=== PATIENT | female | born 1985 | race Caucasian/White ===

== ENCOUNTER 2016-09-16 12:29 | Emergency (ER) | payer OTHER ==
[~2016-09-16] VITALS: Ht 177.8 cm; Wt 70.3 kg
[2016-09-16] MEDS ORDERED: IV NORMAL SALINE 1000ML BAG 1,000 ML IV SCH (13:42)
[2016-09-16] MEDS ORDERED: FAMOTIDINE 20 MG/2 ML VIAL IVP ONE (13:45)
[2016-09-16] MEDS ORDERED: FENTANYL PF 100 MCG/2 ML VIAL. IV PRN (13:45)
[2016-09-16] MEDS ORDERED: ONDANSETRON PF 4 MG/2 ML VIAL. IV ONE (13:45)
--- NOTE | 2016-09-16 13:56 | PHYS DOC ---
Past Medical History Past Medical History: Asthma Past Surgical History: No Surgical History Alcohol Use: Occasionally Drug Use: None Adult General Chief Complaint Chief Complaint: ABDOMINAL PAIN HPI HPI Patient is a 31 year old female who presents with complaint of right lower quadrant abdominal pain. Patient states the pain is been present for the past 2 days. Patient states that her symptoms were very severe last night, however they have slightly improved today. Patient states that she had radiation of pain into her low back on both sides with symptoms per the patient describes the pain as cramping. Patient denies any significant past medical history. Patient states that she has an IUD which has been in place for the past 3 years. Patient does not have an SOFTWARE LEAD physician here in [place]. Patient is currently serving with the . Patient denies any associated fevers, vomiting, dysuria, diarrhea, or hematuria. Review of Systems Review of Systems Constitutional: Denies fever or chills [] Eyes: Denies change in visual acuity, redness, or eye pain [] HENT: Denies nasal congestion or sore throat [] Respiratory: Denies cough or shortness of breath [] Cardiovascular: Denies chest pain [] GI: Abdominal pain, denies nausea, vomiting, bloody stools or diarrhea [] : Denies dysuria or hematuria [] Musculoskeletal: Denies back pain or joint pain [] Integument: Denies rash or skin lesions [] Neuro: Denies headache, weakness, or sensory deficits Current Medications Current Medications Current Medications Medications (Trade) Dose Ordered Sig/Simone Start Time Stop Time Status Last Admin Dose Admin Famotidine (Pepcid) 20 mg 1X ONCE 09/16/16 13:45 09/16/16 13:46 DC Fentanyl Citrate 50 mcg 50 mcg PRN Q15MIN PRN 09/16/16 13:45 09/16/16 17:06 DC Iohexol (Omnipaque 300 Mg/ml) 75 ml 1X ONCE 09/16/16 14:00 09/16/16 14:01 DC 09/16/16 15:28 75 ML Ondansetron HCl (Zofran) 4 mg 1X ONCE 09/16/16 13:45 09/16/16 13:46 DC Sodium Chloride (Iv Sodium Chloride 0.9% 1000ml Bag) 1,000 ml @ 1,000 mls/hr Q1H 09/16/16 13:42 09/16/16 14:41 DC 09/16/16 14:15 1,000 MLS/HR Allergies Allergies Allergies Coded Allergies Type Severity Reaction Last Updated Verified Sulfa (Sulfonamide Antibiotics) Allergy Intermediate 09/16/16 Yes Physical Exam Physical Exam Constitutional: Well developed, well nourished, no acute distress, non-toxic appearance. [] HENT: Normocephalic, atraumatic, bilateral external ears normal, oropharynx moist, no oral exudates, nose normal. [] Eyes: PERRLA, EOMI, conjunctiva normal, no discharge. [] Neck: Normal range of motion, no tenderness, supple, no stridor. [] Cardiovascular:Heart rate regular rhythm, no murmur [] Lungs & Thorax: Bilateral breath sounds clear to auscultation [] Abdomen: Bowel sounds normal, soft, right lower quadrant tenderness to palpation , no masses, no pulsatile masses. Pelvic: Normal external exam, no abnormal discharge [] Skin: Warm, dry, no erythema, no rash. [] Back: No tenderness, no CVA tenderness. [] Extremities: No tenderness, no cyanosis, no clubbing, ROM intact, no edema. [] Neurologic: Alert and oriented X 3, normal motor function, normal sensory function, no focal deficits noted. [] Psychologic: Affect normal, judgement normal, mood normal. [] Current Patient Data Vital Signs Vital Signs Date Time Temp Pulse Resp B/P Pulse Ox O2 Delivery O2 Flow Rate FiO2 09/16/16 15:35 80 20 111/63 99 09/16/16 13:40 98.5 Room Air 98.5 Lab Values Laboratory Tests Test 09/16/16 13:55 09/16/16 14:00 09/16/16 15:15 Chlamydia DNA Probe Negative (Negative) Neisseria gonorrhoeae DNA Probe Negative (Negative) White Blood Count 10.5x10^3/uL (4.0-11.0) Red Blood Count 4.45x10^6/uL (3.50-5.40) Hemoglobin 13.5g/dL (12.0-15.5) Hematocrit 41.2% (36.0-47.0) Mean Corpuscular Volume 93fL (79-100) Mean Corpuscular Hemoglobin 30pg (25-35) Mean Corpuscular Hemoglobin Concent 33g/dL (31-37) Red Cell Distribution Width 13.2% (11.5-14.5) Platelet Count 165x10^3/uL (140-400) Neutrophils (%) (Auto) 65% (31-73) Lymphocytes (%) (Auto) 21% (24-48) L Monocytes (%) (Auto) 9% (0-9) Eosinophils (%) (Auto) 4% (0-3) H Basophils (%) (Auto) 1% (0-3) Neutrophils # (Auto) 6.9x10^3uL (1.8-7.7) Lymphocytes # (Auto) 2.2x10^3/uL (1.0-4.8) Monocytes # (Auto) 0.9x10^3/uL (0.0-1.1) Eosinophils # (Auto) 0.4x10^3/uL (0.0-0.7) Basophils # (Auto) 0.1x10^3/uL (0.0-0.2) Sodium Level 143mmol/L (136-145) Potassium Level 3.8mmol/L (3.5-5.1) Chloride Level 105mmol/L (98-107) Carbon Dioxide Level 26mmol/L (21-32) Anion Gap 12 (6-14) Blood Urea Nitrogen 8mg/dL (7-20) Creatinine 0.7mg/dL (0.6-1.0) Estimated GFR (Cockcroft-Gault) 98.9 BUN/Creatinine Ratio 11 (6-20) Glucose Level 95mg/dL (70-99) Calcium Level 9.0mg/dL (8.5-10.1) Total Bilirubin 1.2mg/dL (0.2-1.0) H Aspartate Amino Transferase (AST) 11U/L (15-37) L Alanine Aminotransferase (ALT) 15U/L (14-59) Alkaline Phosphatase 61U/L (46-116) Total Protein 6.8g/dL (6.4-8.2) Albumin 4.0g/dL (3.4-5.0) Albumin/Globulin Ratio 1.4 (1.0-1.7) Lipase 90U/L (73-393) Urine Collection Type Unknown Urine Color Yellow Urine Clarity Clear Urine pH 7.0 Urine Specific [place] <=1.005 Urine Protein Negativemg/dL (NEG-TRACE) Urine Glucose (UA) Negativemg/dL (NEG) Urine Ketones (Stick) Negativemg/dL (NEG) Urine Blood Negative (NEG) Urine Nitrite Negative (NEG) Urine Bilirubin Negative (NEG) Urine Urobilinogen Dipstick 0.2mg/dL (0.2 mg/dL) Urine Leukocyte Esterase Negative (NEG) Urine RBC 0/HPF (0-2) Urine WBC 0/HPF (0-4) Urine Squamous Epithelial Cells Mod/LPF Urine Bacteria Few/HPF (0-FEW) Urine Test Negative (NEG) Laboratory Tests 09/16/16 14:00 Laboratory Tests 09/16/16 14:00 Microbiology 09/16/16 Wet Prep - Final, Complete EKG EKG Not performed [] Radiology/Procedures Radiology/Procedures [facility] [address] [place] [address] IMAGING REPORT Signed PATIENT: NICK CARMONA ACCOUNT: [id number] : 1985 LOCATION: ER AGE: 31 SEX: F EXAM STATUS: REG ER ORD. PHYSICIAN: ANA LEE MD REASON: right lower quadrant/right adnexal pain PROCEDURE: PELVIS W/TV Indication: Right lower quadrant pain and right adnexal pain. Transabdominal and transvaginal pelvic sonography was performed. The uterus is anteflexed measuring 6.7 x 3.4 x 5.0 cm. There is an IUD centered within the endometrium. The endometrium is approximate 4 mm in thickness. No uterine mass is detected. The right ovary measures 3.3 x 1.7 x 2.6 cm. The left ovary measures 5.0 x 5.0 x 5.4 cm. There is a complex mass involving the left ovary measuring 4.5 x 4.1 x 4.6 cm. No internal blood flow is present and this may represent a hemorrhagic cyst. Follow-up is recommended. No free fluid is identified. There is blood flow to both ovaries. Impression: Probable hemorrhagic cyst of the left ovary. Follow-up ultrasound in 4-6 weeks is recommended to confirm clearing. PQRS Compliance Statement: One or more of the following individualized dose reduction techniques were utilized for this examination: 1. Automated exposure control 2. Adjustment of the mA and/or kV according to patient size 3. Use of iterative reconstruction technique DICTATED and SIGNED BY: VIKRAM PEREZ MD DATE: 09/16/16 3457 CC: ANA LEE MD; NO PCP ~ [facility] [address] [place] [address] IMAGING REPORT Signed PATIENT: NICK CARMONA ACCOUNT: [id number] : 1985 LOCATION: ER AGE: 31 SEX: F EXAM STATUS: REG ER ORD. PHYSICIAN: ANA LEE MD REASON: right lower quadrant abdominal pain PROCEDURE: ABD PELV W/ IV CONTRAST ONLY CT of the abdomen and pelvis with contrast, 09/16/2016: History: Right lower quadrant abdominal pain Multidetector CT imaging was performed following an IV bolus injection of iodinated contrast material. No oral contrast material was administered for this exam. The gallbladder is unremarkable. A tiny subcentimeter low-density lesion in the right lobe of liver is too small to definitively characterize but is probably a cyst or a biliary hamartoma. The liver is otherwise unremarkable. No pancreatic abnormality is seen. The spleen is of normal size. No renal abnormality is detected. The abdominal aorta is unremarkable. No abdominal or pelvic adenopathy is seen. An IUD is present in the uterus. There is a 5 cm rounded cystic-appearing structure in the left adnexa which is presumably of ovarian origin. This was also delineated on the recent ultrasound study and was thought to most likely be a hemorrhagic cyst. No free fluid or free air is evident in the abdomen or pelvis. There is a moderate amount of gas and stool scattered throughout the colon. There is no evidence of bowel obstruction. The appendix is not clearly visualized. There is a suggestion of gas within a segment of a normal-sized appendix. No dilated appendix or pericecal inflammatory process is seen. IMPRESSION: 1. 5 cm left adnexal ovarian cyst. 2. An IUD is in satisfactory position. 3. No acute abdominal or pelvic abnormality is detected. DICTATED and SIGNED BY: JAVON LEHMAN MD DATE: 09/16/16 1537 CC: ANA LEE MD; NO PCP ~ [] Course & Med Decision Making Course & Med Decision Making Pertinent Labs and Imaging studies reviewed. (See chart for details) Patient's imaging unremarkable for cause of patient's symptoms. Patient treated with IV fluids, Zofran, Pepcid, and fentanyl. On reevaluation, patient states she feels better at this time. Patient will be discharged with recommendation of use of ibuprofen and Tylenol as needed for symptoms with follow-up in one week with Dr. Toro. Advised return emergency department for any worsening symptoms. Patient voiced understanding and in agreement with treatment plan. Addendum on September 18, 2016 at 0642: Patient's wet prep results were reviewed and found to be positive for clue cells. The patient will be contacted for notification of these results and patient will be started on a seven-day course of Flagyl. Dragon Disclaimer Dragon Disclaimer This electronic medical record was generated, in whole or in part, using a voice recognition dictation system. Departure Departure Impression: Primary Impression: Abdominal pain Disposition: HOME, SELF-CARE Condition: IMPROVED Referrals: NO PCP (PCP) SAMANTHA TROO Jr, MD Patient Instructions: Abdominal Pain (Nonspecific) Additional Instructions: Follow-up with Dr. Toro in one week. You may take [id number] ibuprofen and Tylenol as needed for your pain. Return to the emergency department for any worsening symptoms. Problem Qualifiers Primary Impression: Abdominal pain Abdominal location: right lower quadrant Qualified Code: R10.31 - Right lower quadrant pain ANA LEE MD Sep 16, 2016 13:56
[2016-09-16] MEDS ORDERED: IOHEXOL 300 MG/ML 75 ML VIAL IV ONE (14:00)
[2016-09-16 14:17] LABS: BASO # 0.1 x10^3/uL (0.0-0.2); BASO % 1 % (0-3); EOS % 4 % (0-3); HEMATOCRIT 41.2 % (36.0-47.0); HEMOGLOBIN 13.5 g/dL (12.0-15.5); LYMPH # 2.2 x10^3/uL (1.0-4.8); LYMPH % 21 % (24-48); MEAN CORPUSCULAR HEMOGLOBIN 30 pg (25-35); MEAN CORPUSCULAR HGB CONC 33 g/dL (31-37); MEAN CORPUSCULAR VOLUME 93 fL (79-100); MONO % 9 % (0-9); NEUT % 65 % (31-73); PLATELET COUNT 165 x10^3/uL (140-400); RED BLOOD COUNT 4.45 x10^6/uL (3.50-5.40); RED CELL DISTRIBUTION WIDTH 13.2 % (11.5-14.5); WHITE BLOOD COUNT 10.5 x10^3/uL (4.0-11.0)
[2016-09-16 14:35] LABS: CREATININE 0.7 mg/dL (0.6-1.0); GFR 98.9; POTASSIUM 3.8 mmol/L (3.5-5.1)
[2016-09-16 14:41] LABS: ALBUMIN/GLOBULIN RATIO 1.4 (1.0-1.7); TOTAL BILIRUBIN 1.2 mg/dL (0.2-1.0); TOTAL PROTEIN 6.8 g/dL (6.4-8.2)
--- NOTE | 2016-09-16 15:01 | RAD ---
Indication: Right lower quadrant pain and right adnexal pain. Transabdominal and transvaginal pelvic sonography was performed. The uterus is anteflexed measuring 6.7 x 3.4 x 5.0 cm. There is an IUD centered within the endometrium. The endometrium is approximate 4 mm in thickness. No uterine mass is detected. The right ovary measures 3.3 x 1.7 x 2.6 cm. The left ovary measures 5.0 x 5.0 x 5.4 cm. There is a complex mass involving the left ovary measuring 4.5 x 4.1 x 4.6 cm. No internal blood flow is present and this may represent a hemorrhagic cyst. Follow-up is recommended. No free fluid is identified. There is blood flow to both ovaries. Impression: Probable hemorrhagic cyst of the left ovary. Follow-up ultrasound in 4-6 weeks is recommended to confirm clearing. PQRS Compliance Statement: One or more of the following individualized dose reduction techniques were utilized for this examination: 1. Automated exposure control 2. Adjustment of the mA and/or kV according to patient size 3. Use of iterative reconstruction technique
[2016-09-16 15:29] LABS: NEG OBC UR NEG; POS OBC UR POS
[2016-09-16 15:34] LABS: BILIRUBIN,URINE NEGATIVE (NEG); GLUCOSE,URINE NEGATIVE (NEG); NITRITE,URINE NEGATIVE (NEG); PROTEIN,URINE NEGATIVE (NEG-TRACE); UROBILINOGEN,URINE 0.2 mg/dL (0.2 mg/dL)
[2016-09-16 15:35] VITALS: BP 111/63
[2016-09-16 15:49] LABS: BACTERIA,URINE FEW /HPF (0-FEW); RBC,URINE 0 /HPF (0-2); SQUAMOUS EPITHELIAL CELL,UR MOD /LPF; WBC,URINE 0 /HPF (0-4)
--- NOTE | 2016-09-16 15:49 | RAD ---
CT of the abdomen and pelvis with contrast, 09/16/2016: History: Right lower quadrant abdominal pain Multidetector CT imaging was performed following an IV bolus injection of iodinated contrast material. No oral contrast material was administered for this exam. The gallbladder is unremarkable. A tiny subcentimeter low-density lesion in the right lobe of liver is too small to definitively characterize but is probably a cyst or a biliary hamartoma. The liver is otherwise unremarkable. No pancreatic abnormality is seen. The spleen is of normal size. No renal abnormality is detected. The abdominal aorta is unremarkable. No abdominal or pelvic adenopathy is seen. An IUD is present in the uterus. There is a 5 cm rounded cystic-appearing structure in the left adnexa which is presumably of ovarian origin. This was also delineated on the recent ultrasound study and was thought to most likely be a hemorrhagic cyst. No free fluid or free air is evident in the abdomen or pelvis. There is a moderate amount of gas and stool scattered throughout the colon. There is no evidence of bowel obstruction. The appendix is not clearly visualized. There is a suggestion of gas within a segment of a normal-sized appendix. No dilated appendix or pericecal inflammatory process is seen. IMPRESSION: 1. 5 cm left adnexal ovarian cyst. 2. An IUD is in satisfactory position. 3. No acute abdominal or pelvic abnormality is detected.
== END 2016-09-16 17:06 | disposition home or self-care (01) ==
LOC: ER 12:29
DX: N76.0 Acute vaginitis (principal); J45.909 Unspecified asthma, uncomplicated; Z88.0 Allergy status to penicillin
CPT/HCPCS: 36415; 74177; 76830; 76856; 80053; 81001; 81025; 83690; 85027; 87491; 87591; 96360; 99285; J7030; Q0111; Q9967